=== PATIENT | female | born 1955 | race Hispanic/Latino ===

== ENCOUNTER → 2019-03-30 | Outpatient (CLI) | payer BC, MEDICARE ==
[~2019-03-30] MED LIST: AEC81 PO; AMLO10TA7 PO; FERROUS SULFATE PO; HYDR-2132 PO; IOHEXOL 350 MG/ML 100ML INFUS..BTL IV ONE; METF-444 PO; METO-391 PO; MULT1CAP32 PO; PRAV40TA3 PO; RANO500T2 PO
== END | disposition home or self-care (01) ==
LOC: RAH 08:29
PROVIDERS: ATTEND Internal Medicine Gastroenterology
DX: K76.0 Fatty (change of) liver, not elsewhere classified (principal); F41.8 Other specified anxiety disorders; Z87.891 Personal history of nicotine dependence
CPT/HCPCS: 74170; Q9967

== ENCOUNTER 2020-02-03 15:47 | Emergency (ER) | payer BC, MEDICARE ==
[~2020-02-03 15:47] MED LIST changes: -IOHEXOL 350 MG/ML 100ML INFUS..BTL IV ONE
[2020-02-03 16:58] LABS: BASOPHILS % (AUTO) 0.4 % (0.0-5.0); EOSINOPHILS % (AUTO) 0.8 % (0.0-8.0); HEMATOCRIT 31.6 % (36-48); MEAN CORPUSCULAR HEMOGLOBIN 28.5 pg (27.0-33.0); MEAN CORPUSCULAR HGB CONC 31.3 g/dL (32.0-36.0); MEAN CORPUSCULAR VOLUME 91.1 fL (79-99); MONOCYTES % (AUTO) 8.1 % (3.0-13.0); NEUTROPHILS % (AUTO) 67.2 % (40.0-77.0); PLATELET COUNT (AUTO) 379 K/uL (130-400); RED BLOOD CELL COUNT(AUTO) 3.47 MIL/uL (4.00-5.50); RED CELL DISTRIBUTION WIDTH 14.2 % (11.0-15.5); WHITE BLOOD COUNT (AUTO) 8.3 K/uL (4.8-10.8)
[2020-02-03 17:12] LABS: CREATININE 0.6 mg/dL (0.5-1.5); POTASSIUM 3.1 mmol/L (3.5-5.1)
[2020-02-03 17:17] LABS: ALBUMIN 3.4 g/dL (3.5-5.0); BILIRUBIN,TOTAL 0.2 mg/dL (0.2-1.0); TOTAL PROTEIN, SERUM 7.6 g/dL (6.0-8.3)
[2020-02-03] MEDS ORDERED: NITROGLYCERIN 0.4 MG SL TAB SL ONE (17:21)
[2020-02-03] MEDS ORDERED: ASPIRIN 325 MG TABLET ONE (17:21)
[2020-02-03] MEDS ORDERED: ONDANSETRON ODT 4 MG TAB ONE (19:06)
[2020-02-03] MEDS ORDERED: HYDROCODONE/ACETAMINOPHEN 10/325 MG TAB ONE (19:06)
[2020-02-03] MEDS ORDERED: POTASSIUM BICARB/CIT AC 25 MEQ TABLET.EFF ONE (21:06)
== END 2020-02-03 21:19 | disposition home or self-care (01) ==
LOC: EDH 15:47
DX: R07.89 Other chest pain (principal); Z20.828 Contact with and (suspected) exposure to other viral communicable diseases; E11.9 Type 2 diabetes mellitus without complications; I10 Essential (primary) hypertension
CPT/HCPCS: 36415; 71045; 80053; 82550; 83880; 84484 ×2; 85025; 93005 ×2; 99285; U0003

== ENCOUNTER 2022-12-11 09:54 | Observation (INO) | payer BC, MEDICARE ==
[~2022-12-11] VITALS: Ht 180.3 cm; Wt 121.7 kg
[~2022-12-11 09:54] MED LIST changes: +AMLO-258 PO; -AMLO10TA7 PO
[2022-12-11] MEDS ORDERED: PHARMACY COMMUNICATION MISC SCH (10:30)
[2022-12-11] MEDS ORDERED: SIMVASTATIN 20 MG TABLET PO SCH (10:30)
[2022-12-11] MEDS ORDERED: MONT-39 PO (13:00)
[2022-12-11] MEDS ORDERED: ESOM20CA39 PO (13:00)
[2022-12-11] MEDS ORDERED: ISOS60TA77 PO (13:00)
[2022-12-11] MEDS ORDERED: FLUT1BLS3 IH (13:00)
[2022-12-11] MEDS ORDERED: IRON1CAP30 PO (13:00)
[2022-12-11] MEDS ORDERED: ALBU0.63 IH (13:00)
[2022-12-11] MEDS ORDERED: CARV25TA PO (13:00)
[2022-12-11 14:30] VITALS: BP 145/72
[2022-12-11] MEDS ORDERED: DEXTROSE 50%-WATER 50 ML DISP.SYRIN IV PRN (15:30)
[2022-12-11] MEDS ORDERED: GLUCAGON 1MG KIT 1 MG ML IM PRN (15:30)
[2022-12-11] MEDS: INSULIN HUMULIN R 100 UNIT/ML 3ML SQ SCH ×2 (16:30→21:18)
[2022-12-11 16:42] VITALS: BP 141/62
[2022-12-11] MEDS ORDERED: DiphenhydrAMINE HCL 50 MG/ML VIAL IVP PRN (18:00)
[2022-12-11] MEDS: 0.9%NACL 1000ML 1,000 ML IV SCH (18:49)
[2022-12-11 18:52] LABS: HEMATOCRIT 37.1 % (36-48); MEAN CORPUSCULAR HEMOGLOBIN 28.3 pg (27.0-33.0); MEAN CORPUSCULAR VOLUME 91.2 fL (79-99); PLATELET COUNT (AUTO) 339 K/uL (130-400); RED BLOOD CELL COUNT(AUTO) 4.07 MIL/uL (4.00-5.50); RED CELL DISTRIBUTION WIDTH 14.1 % (11.0-15.5); WHITE BLOOD COUNT (AUTO) 8.5 K/uL (4.8-10.8)
[2022-12-11 18:59] LABS: CREATININE 0.6 mg/dL (0.5-1.5); POTASSIUM 3.2 mmol/L (3.5-5.1)
[2022-12-11 19:06] LABS: INR 0.99 (0.85-1.15); PROTHROMBIN TIME 10.8 SEC (9.6-11.6)
[2022-12-11 19:07] LABS: PARTIAL THROMBOPLASTIN TIME 27.8 SEC (26.3-35.5)
[2022-12-11 19:15] VITALS: BP 154/64
[2022-12-11] MEDS: CARVEDILOL 25 MG TABLET PO SCH (21:17)
[2022-12-12] VITALS (12 sets, daily range): BP systolic 117–139; BP diastolic 56–69
[2022-12-12] MEDS: 0.9%NACL 1000ML 1,000 ML IV SCH (04:19)
[2022-12-12 04:21] LABS: BASOPHILS % (AUTO) 0.3 % (0.0-5.0); EOSINOPHILS % (AUTO) 0.9 % (0.0-8.0); LYMPHOCYTES % (AUTO) 32.2 % (21.0-51.0); MEAN CORPUSCULAR HEMOGLOBIN 27.8 pg (27.0-33.0); MEAN CORPUSCULAR HGB CONC 31.2 g/dL (32.0-36.0); MEAN CORPUSCULAR VOLUME 88.9 fL (79-99); MONOCYTES % (AUTO) 7.9 % (3.0-13.0); NEUTROPHILS % (AUTO) 58.4 % (40.0-77.0); PLATELET COUNT (AUTO) 317 K/uL (130-400); RED BLOOD CELL COUNT(AUTO) 3.71 MIL/uL (4.00-5.50); RED CELL DISTRIBUTION WIDTH 14.1 % (11.0-15.5); WHITE BLOOD COUNT (AUTO) 7.6 K/uL (4.8-10.8)
[2022-12-12 04:30] LABS: CREATININE 0.6 mg/dL (0.5-1.5); MAGNESIUM 1.6 mg/dL (1.80-2.40)
[2022-12-12 04:36] LABS: POTASSIUM 2.8 mmol/L (3.5-5.1)
[2022-12-12] MEDS ORDERED: SPIRONOLACTONE 25 MG TAB PO ONE (05:00)
[2022-12-12] MEDS ORDERED: POTASSIUM CHLORIDE 10% ELIXIR 20 MEQ/15 ML UDCUP PO PRN (05:00)
[2022-12-12] MEDS ORDERED: POTASSIUM CHLORIDE 10MEQ/100ML 100 ML IV PRN (05:00)
[2022-12-12] MEDS ORDERED: POTASSIUM CHLORIDE 20MEQ/100ML 100 ML IV PRN (05:00)
[2022-12-12] MEDS ORDERED: MAGNESIUM 2GM PREMIX 50ML 50 ML IV PRN (05:00)
[2022-12-12] MEDS: KCL 20 MEQ ERTAB PO PRN ×4 (05:30→10:49)
[2022-12-12] MEDS: INSULIN HUMULIN R 100 UNIT/ML 3ML SQ SCH ×3 (06:20→16:30)
[2022-12-12] MEDS ORDERED: ISOSORBIDE MONO 30MG SR TAB PO SCH (09:00)
[2022-12-12] MEDS ORDERED: ENOXAPARIN SODIUM 40 MG/0.4 ML SYRINGE SQ SCH (09:00)
[2022-12-12] MEDS ORDERED: ASPIRIN 81MG CHEW TAB PO SCH (09:00)
[2022-12-12] MEDS ORDERED: AMLODIPINE 5 MG TAB PO SCH (09:00)
[2022-12-12] MEDS: CARVEDILOL 25 MG TABLET PO SCH (09:28)
[2022-12-12] MEDS ORDERED: LIDOCAINE HCL 400MG/20ML VIAL ONE (10:42)
[2022-12-12] MEDS ORDERED: HEPARIN 1,000 UNIT VIAL ONE (10:43)
[2022-12-12] MEDS ORDERED: MIDAZOLAM HCL 1 MG/ML 2ML VIAL ONE (10:43)
[2022-12-12] MEDS ORDERED: FENTANYL CITRATE PF 50 MCG/1 ML 2ML VIAL ONE (10:43)
[2022-12-12] MEDS ORDERED: IOHEXOL-350 75 ML VIAL IV ONE (10:44)
[2022-12-12] MEDS ORDERED: IOHEXOL-350 50ML VIAL IV ONE (10:44)
[2022-12-12] MEDS ORDERED: NITROGLYCERIN 50MG VIAL ONE (10:44)
[2022-12-12] MEDS ORDERED: VERAPAMIL HCL 2.5 MG/ML VIAL ONE (10:50)
[2022-12-12] MEDS ORDERED: HEPARIN 10,000 UNIT/10ML (1,000 UNIT/ML) VIAL ONE (11:33)
[2022-12-12] MEDS ORDERED: 0.9%NACL 1000ML 1,000 ML IV SCH (12:30)
[2022-12-12] MEDS ORDERED: SIMVASTATIN 20 MG TABLET PO SCH (21:00)
== END 2022-12-12 19:20 | disposition home or self-care (01) ==
LOC: EDH 09:54 → DIRECT 09:55 → UNDOADMOB 10:13 → DIRECT 10:13 → 2DH 13:57 → DIRECT 13:57
PROVIDERS: ADMIT Internal Medicine Cardiovascular Disease; ATTEND Internal Medicine Cardiovascular Disease
DX: I25.119 Atherosclerotic heart disease of native coronary artery with unspecified angina pectoris (principal); I49.3 Ventricular premature depolarization; E11.9 Type 2 diabetes mellitus without complications; I10 Essential (primary) hypertension; E78.5 Hyperlipidemia, unspecified; E66.9 Obesity, unspecified; E83.42 Hypomagnesemia; E87.6 Hypokalemia; Z79.899 Other long term (current) drug therapy
CPT/HCPCS: 96372; 96365; 96366; 80048 ×2; 85027; 85610; 85730; 82948 ×5; 36415 ×2; 71046; 93005; 93458; 83735; 84132; 85025; G0378 ×30; J1815; C1769 ×2; C1894 ×2; Q9965; J3475; J1200; J3010; J3490 ×3; J1644 ×2; J2250; Q9967 ×2; 99156; 99157

== ENCOUNTER 2023-11-03 14:01 | Emergency (ER) | payer BC, MEDICARE ==
[~2023-11-03] VITALS: Ht 180.3 cm; Wt 123.8 kg
[~2023-11-03 14:01] MED LIST changes: +ALBU0.63 IH; +CARV25TA PO; +ESOM20CA39 PO; +FLUT1BLS3 IH; -HYDR-2132 PO; +IRON1CAP30 PO; +ISOS60TA77 PO; -METO-391 PO; +MONT-39 PO
[2023-11-03 15:14] LABS: BASOPHILS # (AUTO) 0.02 K/uL (0.00-0.20); BASOPHILS % (AUTO) 0.2 % (0.0-5.0); EOSINOPHILS # (AUTO) 0.04 K/uL (0.00-0.70); EOSINOPHILS % (AUTO) 0.4 % (0.0-8.0); HEMATOCRIT 33.8 % (36-48); IMMATURE GRANULOCYTE ABSOLUTE 0.04 K/uL (0-1); LYMPHOCYTES # (AUTO) 1.6 K/uL (1.0-4.8); LYMPHOCYTES % (AUTO) 17.8 % (21.0-51.0); MEAN CORPUSCULAR HEMOGLOBIN 28.2 pg (27.0-33.0); MEAN CORPUSCULAR VOLUME 88.3 fL (79-99); MONOCYTES # (AUTO) 0.6 K/uL (0.1-1.0); MONOCYTES % (AUTO) 6.3 % (3.0-13.0); NEUTROPHILS # (AUTO) 6.7 K/uL (1.8-7.7); NEUTROPHILS % (AUTO) 74.9 % (40.0-77.0); PLATELET COUNT (AUTO) 325 K/uL (130-400); RED BLOOD CELL COUNT(AUTO) 3.83 MIL/uL (4.00-5.50); RED CELL DISTRIBUTION WIDTH 14.1 % (11.0-15.5); WHITE BLOOD COUNT (AUTO) 8.9 K/uL (4.8-10.8)
[2023-11-03] MEDS: 0.9%NACL 1000ML 1,000 ML IV ONE (15:14)
[2023-11-03 15:30] LABS: POTASSIUM 3.6 mmol/L (3.5-5.1)
[2023-11-03 15:36] LABS: ALBUMIN 3.1 g/dL (3.5-5.0); BILIRUBIN,TOTAL 0.2 mg/dL (0.2-1.0); TOTAL PROTEIN, SERUM 7.5 g/dL (6.0-8.3)
[2023-11-03] MEDS ORDERED: IOHEXOL 350 MG/ML 100ML INFUS..BTL IV ONE (16:22)
[2023-11-03 16:52] LABS: ADD UA MICROSCOPIC YES; APPEARANCE,URINE CLEAR (CLEAR); BILIRUBIN,URINE NEGATIVE (NEGATIVE); COLOR,URINE LIGHT-YELLOW (YELLOW); GLUCOSE, URINE (UA) NEGATIVE (NEGATIVE); KETONES,URINE NEGATIVE (NEGATIVE); LEUKOCYTE ESTERASE ,URINE 25 Leu/uL (NEGATIVE); NITRATE,URINE 2+ (NEGATIVE); OCCULT BLOOD,URINE NEGATIVE (NEGATIVE); PH,URINE 5.5 (5.0-8.0); PROTEIN,URINE NEGATIVE (NEGATIVE); UROBILINOGEN,URINE 0.2 mg/dL (0.2-1.0)
[2023-11-03] MEDS ORDERED: CEPH500B PO (16:58)
[2023-11-03 17:03] LABS: BACTERIA,URINE MANY /HPF (None Seen); MUCUS,URINE RARE LPF (None Seen)
[2023-11-03] MEDS: CEFTRIAXONE 1G VIAL IVPB ONE (17:08)
[2023-11-03 17:24] VITALS: BP 134/56; PULSE 75; RESP 18; O2SAT 97
== END 2023-11-03 17:41 | disposition home or self-care (01) ==
LOC: EDH 14:01
DX: N39.0 Urinary tract infection, site not specified (principal); I10 Essential (primary) hypertension; E11.9 Type 2 diabetes mellitus without complications; E78.00 Pure hypercholesterolemia, unspecified; J44.9 Chronic obstructive pulmonary disease, unspecified; Z79.82 Long term (current) use of aspirin; Z79.84 Long term (current) use of oral hypoglycemic drugs; Z79.899 Other long term (current) drug therapy; Z90.49 Acquired absence of other specified parts of digestive tract; Z90.710 Acquired absence of both cervix and uterus; Z98.890 Other specified postprocedural states
CPT/HCPCS: 99284; 74177; 96365; 96361; 80053; 83690; 85025; 87077; 87088; 87186; 81001; 36415; J7030; J0696; Q9967; 96374